=== PATIENT | female | born 1945 | race Caucasian/White ===

== ENCOUNTER → 2017-06-19 | Outpatient (CLI) | payer MEDICARE, OTHER, BC | LOC: M LRY 12:53 | DX: M25.551 Pain in right hip (principal); M79.621 Pain in right upper arm; M25.511 Pain in right shoulder; M85.811 Other specified disorders of bone density and structure, right shoulder; M85.831 Other specified disorders of bone density and structure, right forearm | CPT/HCPCS: 73030; G0463 ==